=== PATIENT | male | born 1995 | race Two or more races ===

== ENCOUNTER 2023-09-28 02:50 | Emergency (ER) | payer SELFPAY ==
[2023-09-28] MEDS ORDERED: Amoxicillin/Clavulanate K 875-125 MG Tab PO ONE (03:20)
== END 2023-09-28 04:00 | disposition home or self-care (01) ==
LOC: JD.ED 02:50
DX: S51.852A Open bite of left forearm, initial encounter (principal); S60.415A Abrasion of left ring finger, initial encounter; S60.417A Abrasion of left little finger, initial encounter; W50.3XXA Accidental bite by another person, initial encounter
CPT/HCPCS: 99283; A9270